=== PATIENT | male | born 1995 | race Two or more races ===

== ENCOUNTER 2023-09-04 12:30 | Emergency (ER) | payer OTHER ==
[2023-09-04 12:45] VITALS: BP 122/64; PULSE 55; RESP 18; TEMP 98; BMI 49.1
[2023-09-04] MEDS ORDERED: KETOROLAC TROMETHAMINE 10 MG TABLET PO ONE (13:00)
== END 2023-09-04 14:50 | disposition home or self-care (01) ==
LOC: JERFT 12:30 → JER 12:30 → JERFT 14:50
DX: M54.2 Cervicalgia (principal); M54.9 Dorsalgia, unspecified; M25.551 Pain in right hip; M62.838 Other muscle spasm; V89.2XXA Person injured in unspecified motor-vehicle accident, traffic, initial encounter; Y93.I9 Activity, other involving external motion; Y92.9 Unspecified place or not applicable
CPT/HCPCS: 72070-TC-FY; 72170-TC-FY; 73502-TC-RT-FY; 99284-25